=== PATIENT | female | born 1985 | race Caucasian/White ===

== ENCOUNTER 2016-03-07 12:22 | Emergency (ER) | payer BC ==
--- NOTE | 2016-03-07 13:27 | EDPHY ---
H & P Stated Complaint: Back pain for 3 weeks. feels worse today. Time Seen by Provider: 03/07/16 13:22 - Personal History LMP (Females 10-55): 8-14 Days Ago Current Tetanus Diphtheria and Acellular Pertussis (TDAP): Yes - Medical/Surgical History Hx Asthma: No Hx Chronic Respiratory Disease: No Hx Diabetes: No Hx Cardiac Disease: No Hx Renal Disease: No Hx Cirrhosis: No Hx Alcoholism: No Hx HIV/AIDS: No Hx Splenectomy or Spleen Trauma: No Other PMH: Chronic back pain. - Social History Smoking Status: Never smoked Constitutional: Initial Vital Signs Temperature (C) 36.7 C 03/07/16 12:24 Heart Rate 113 H 03/07/16 12:24 Respiratory Rate 18 03/07/16 12:24 Blood Pressure 138/101 H 03/07/16 12:24 O2 Sat (%) 98 03/07/16 12:24 O2 Delivery Mode Room Air Allergies/Adverse Reactions: ibuprofen Allergy (Verified 03/07/16 12:28) Home Medications: Medication Instructions Recorded Flexeril 03/07/16 Prednisone 03/07/16 Medical Decision Making ED Course/Re-evaluation: CHIEF COMPLAINT: Back pain HISTORY OF PRESENT ILLNESS: The patient is a 30 year old female presenting with low back pain that has been worsening over the past 3 weeks. She reports no recent injury or trauma. She states she usually experiences low back pain after a lot of exercise, but the pain goes away without intervention. Her pain today is worse than usual. It is exacerbated with movement, cough, and bowel movement. She took a muscle relaxer and prednisone that she was prescribed from a PA at the ortho clinic. She denies incontinence. No urinary complaints. REVIEW OF SYSTEMS: A 10 point review of systems was performed and is negative with the exception of the elements mentioned in the history of present illness. PHYSICAL EXAM: HR, BP, O2 Sat, RR. Temp noted General Appearance: Alert, well hydrated, appropriate, and non-toxic appearing. Head: Atraumatic without scalp tenderness or obvious injury Eyes: Pupils equal, round, reactive to light and accommodation, EOMI, no trauma , no injection. Ears: Clear bilaterally, no perforation, normal landmarks Nose: Atraumatic, no rhinorrhea, clear. Throat: There is no erythema or exudates, no lesions, normal tonsils, mucus membranes moist. Neck: Supple, 2+ carotid upstroke, nontender, no lymphadenopathy. Respiratory: No retractions, no distress, no wheezes, and no accessory muscle use. Lungs are clear to auscultation bilaterally. Cardiovascular: Regular rate and rhythm, no murmurs, rubs, or gallops. Bilateral carotid, radial, dorsalis pedis, and posterior tibial pulses intact. Good capillary refill all extremities. Gastrointestinal: Abdomen is soft, nontender, non-distended, no masses, no rebound, no guarding, no peritoneal signs. Musculoskeletal: Normal active ROM of all extremities, atraumatic. Neurological: Alert, appropriate, and interactive. The patient has normal DTRs and non-focal cranial nerves, motor, sensory, and cerebellar exam. Skin: No rashes, good turgor, no nodules on palpation. Past medical history: Denies. Past surgical history: Denies. Family history: Noncontributory. Social history: Non smoker. No recent alcohol. DIAGNOSTICS/PROCEDURES/CRITICAL CARE TIME: Study: MRI of the lumbar spine. Indication: Low back pain. Results: L5, S1 disc herniation. The study was read by the radiologist, Dr. Rivera. I viewed the images myself on the PACS system. DIFFERENTIAL DIAGNOSIS: The differential diagnosis for the patient's back pain included but was not limited to musculo-skeletal pain, epidural abscess, herniated disk, spinal fracture, and intra-abdominal causes including urinary system. MEDICAL DECISION MAKING: The patient is a young female presenting with worsening back pain for the past 3 weeks. She has pain with with movement. She took Prednisone and a muscle relaxer this morning, but continues to have pain. Plan for MRI. MRI shows acute L5, S1 disc herniation. I discussed findings with the patient, she understands. I will have her followup with the Neurosurgeon, Dr. Corbett for further evaluation. - Data Points Medications Given: Discontinued Medications Oxycodone HCl (Oxycodone Ir) 5 mg PO EDNOW ONE Stop: 03/07/16 13:47 Last Admin: 03/07/16 13:47 Dose: 5 mg Departure - Departure Disposition: Home, Routine, Self-Care Clinical Impression: Disc herniation Qualifiers: Spinal region: lumbar Qualifier Code: (M51.26) Other intervertebral disc displacement, lumbar region Condition: Good Instructions: Lumbar Disc Herniation (ED) Additional Instructions: Followup with Dr. Cobrett, the neurosurgeon for further evaluation. His office will call you to arrange an appointment. Take [place] for severe pain. Take Medrol dose pack as directed. Referrals: Chuck Corbett MD [Medical Doctor] - As per Instructions (Neurosurgeon) Report Scribed for: Hitesh Damon Report Scribed by: Asiya Jones Date of Report: 03/07/16 Time of Report: 13:38
[2016-03-07] MEDS ORDERED: oxyCODONE IR 5 MG TAB ONE (13:34)
[2016-03-07] MEDS ORDERED: oxyCODONE IR 5 MG TAB PO ONE (13:46)
--- NOTE | 2016-03-07 15:05 | MR ---
MRI of the Lumbar Spine (Without Contrast) at 1401 hours Clinical indications: Back pain with right S1 radiculopathy. Technique: Sagittal and axial T1 and T2 and sagittal STIR MR sequences of the lumbar spine without co ntrast. Axial imaging from T11-S1. Findings: Lumbar vertebral bodies are of normal height without compression fractures. Conus medullar is appears normal and ends at T12. T11-T12: No disc herniation or stenosis. T12-L1: No disc herniation or stenosis. L1-L2: Mild degenerative disc disease with small central disc herniation, protrusion, resulting in mi ld central canal stenosis. L2-L3: Mild degenerative disc disease with small central disc herniation, protrusion, resulting in mi ld central canal stenosis without neural foraminal stenosis. L3-L4: Mild disc bulge and mild bilateral facet arthropathy resulting in mild central canal stenosis. L4-L5: No disk herniation or stenosis. L5-S1: Moderate degenerative disc disease with moderate disc space narrowing, central 6 mm disc herni ation, resulting in dorsal displacement of the right S1 nerve root, mild central canal stenosis and m ild right lateral recess stenosis without neural foraminal stenosis. Impression: 1. L5-S1: Degenerative disc disease with central disc herniation, extrusion, resulting in slight dors al displacement of the right S1 nerve root and mild central canal stenosis. 2. Please see above findings at specific disk levels. Findings and recommendations discussed with Emergency Department physician, Dr. Hitesh Damon at 1445 hours, today. Final report concurs with initial preliminary interpretation.
[2016-03-07 15:21] VITALS: BP 128/74; PULSE 70; RESP 14; TEMP 98.4; O2SAT 94
== END 2016-03-07 15:20 | disposition home or self-care (01) ==
DX: M51.26 Other intervertebral disc displacement, lumbar region (principal)